=== PATIENT | male | born 1955 | race Caucasian/White ===

== ENCOUNTER 2018-12-17 16:21 | Emergency (ER) | payer MEDICARE, BC ==
[2018-12-17 16:40] VITALS: BP 148/66
--- NOTE | 2018-12-17 17:41 | EDM.PDOC ---
<GeorgeshayleeYolanda M - Last Filed: 12/17/18 17:45> ED HPI GENERAL MEDICAL PROBLEM - General Chief Complaint: Laceration Stated Complaint: LEFT INDEX FINGER CUT Time Seen by Provider: 12/17/18 17:30 History Limitations: Reports: No Limitations - History of Present Illness INITIAL COMMENTS - FREE TEXT/NARRATIVE: was cutting with a hacksaw when blade slipped cutting thumb and index finder of left hand. Onset: Today - Related Data Allergies Allergy/AdvReac Type Severity Reaction Status Date / Time No Known Allergies Allergy Verified 12/17/18 16:40 Past Medical History HEENT History: Reports: Hard of Hearing, Impaired Vision Respiratory History: Reports: Bronchitis, Recurrent, COPD Genitourinary History: Reports: Renal Calculus - Past Surgical History HEENT Surgical History: Reports: LASIK GI Surgical History: Reports: Hernia Repair/Other Social & Family History - Tobacco Use Smoking Status *Q: Current Every Day Smoker Years of Tobacco use: 45 Packs/Tins Daily: 0.5 - Caffeine Use Caffeine Use: Reports: Coffee, Tea - Recreational Drug Use Recreational Drug Use: No ED EXAM, SKIN/RASH Exam: See Below Exam Limited By: No Limitations General Appearance: Alert, WD/WN, No Apparent Distress Ears: Hearing Grossly Normal Extremities: Other (left hand lacerations, superficial skin tear to left thumb, 2.0 cm laceration to MIP joint, radial aspect, well approximated incision.) Course - Vital Signs Last Recorded V/S: Last Vital Signs Temp 35.9 C 12/17/18 16:43 Pulse 65 12/17/18 16:43 Resp 16 12/17/18 16:43 BP 148/66 H 12/17/18 16:43 Pulse Ox 97 12/17/18 16:43 - Orders/Labs/Meds Orders: Active Orders 24 hr Category Date Time Status Vaccines to be Administered [RC] PER UNIT ROUTINE Care 12/17/18 17:44 Active Meds: Medications Discontinued Medications Generic Name Dose Route Start Last Admin Trade Name Freq PRN Reason Stop Dose Admin Bacitracin 1 dose 12/17/18 17:50 12/17/18 17:57 Bacitracin Oint 1 Gm TOP 12/17/18 17:51 1 dose ONETIME ONE Administration Diphtheria/Tetanus/Acell Pertussis 0.5 ml 12/17/18 17:44 12/17/18 17:56 Adacel IM 12/17/18 17:45 0.5 ml .ONCE ONE Administration Departure - Departure Disposition: Home, Self-Care 01 Clinical Impression: Finger laceration - Discharge Information *PRESCRIPTION DRUG MONITORING PROGRAM REVIEWED*: No *COPY OF PRESCRIPTION DRUG MONITORING REPORT IN PATIENT [place]: No Instructions: Laceration Care, Adult, [id number] Referrals: PCP,None [Primary Care Provider] - Forms: ED Department Discharge Additional Instructions: Keep wound clean and dry. Apply bacitracin once a day when change out bandaid. Watch for signs of infection, redness, drainage from wound, redline traveling down to wrist. Tetanus updated by RN. <Hamzah Vargas - Last Filed: 12/18/18 18:43> ED ROS GENERAL - Review of Systems Review Of Systems: ROS reveals no pertinent complaints other than HPI. ED EXAM, SKIN/RASH Skin: Other (There is a laceration to the radial side of the middle phalanx of the left index finger. It's approximately 2 cm long handed full-thickness and it appears to need suturing.) Course - Orders/Labs/Meds Orders: Active Orders 24 hr Category Date Time Status Vaccines to be Administered [RC] PER UNIT ROUTINE Care 12/17/18 17:44 Active Meds: Medications Discontinued Medications Generic Name Dose Route Start Last Admin Trade Name Fabián PRN Reason Stop Dose Admin Bacitracin 1 dose 12/17/18 17:50 12/17/18 17:57 Bacitracin Oint 1 Gm TOP 12/17/18 17:51 1 dose ONETIME ONE Administration Diphtheria/Tetanus/Acell Pertussis 0.5 ml 12/17/18 17:44 12/17/18 17:56 Adacel IM 12/17/18 17:45 0.5 ml .ONCE ONE Administration - Re-Assessments/Exams Free Text/Narrative Re-Assessment/Exam: 12/17/18 17:44I examined this patient along with the nurse practitioner student and he has a hacksaw laceration to the lateral or radial side of the left index finger. It is about 2 cm long its superficial except for one tiny place about 2 mm long were it is a little bit deeper. Edges are well approximated and it looks like a clean wound. Sutures would add nothing to the care of this wound. Wound was copiously lavaged and will receive some antibiotic ointment and a dressing no follow-up should be needed. Tetanus will be addressed Departure - Departure Time of Disposition: 18:43
--- NOTE | 2018-12-17 17:43 | EDM.PDOC ---
ED HPI GENERAL MEDICAL PROBLEM - General Chief Complaint: Laceration Stated Complaint: LEFT INDEX FINGER CUT Time Seen by Provider: 12/17/18 17:30 - Related Data Allergies Allergy/AdvReac Type Severity Reaction Status Date / Time No Known Allergies Allergy Verified 12/17/18 16:40 Past Medical History HEENT History: Reports: Hard of Hearing, Impaired Vision Respiratory History: Reports: Bronchitis, Recurrent, COPD Genitourinary History: Reports: Renal Calculus - Past Surgical History HEENT Surgical History: Reports: LASIK GI Surgical History: Reports: Hernia Repair/Other Social & Family History - Tobacco Use Smoking Status *Q: Current Every Day Smoker Years of Tobacco use: 45 Packs/Tins Daily: 0.5 - Caffeine Use Caffeine Use: Reports: Coffee, Tea - Recreational Drug Use Recreational Drug Use: No Course - Vital Signs Last Recorded V/S: Last Vital Signs Temp 35.9 C 12/17/18 16:43 Pulse 65 12/17/18 16:43 Resp 16 12/17/18 16:43 BP 148/66 H 12/17/18 16:43 Pulse Ox 97 12/17/18 16:43 - Re-Assessments/Exams Free Text/Narrative Re-Assessment/Exam: 12/17/18 17:41 I examined this patient along with the nurse practitioner student and he has a hacksaw laceration to the lateral or radial side of the left index finger. It is about 2 cm long its superficial except for one tiny place about 2 mm long were it is a little bit deeper. Edges are well approximated and it looks like a clean wound. Sutures would add nothing to the care of this wound. Wound was copiously lavaged and will receive some antibiotic ointment and a dressing no follow-up should be needed. Tetanus will be addressed Departure - Discharge Information Referrals: PCP,None [Primary Care Provider] - Forms: ED Department Discharge
[2018-12-17] MEDS ORDERED: Diphtheria,Pertussis(Acell),Tetanus Vaccine 0.5 ML SDV IM ONE (17:44)
[2018-12-17] MEDS ORDERED: Bacitracin Oint 1 GM U/D Packet TOP ONE (17:50)
== END 2018-12-17 18:03 | disposition home or self-care (01) ==
LOC: JP.ED 16:21
DX: S61.012A Laceration without foreign body of left thumb without damage to nail, initial encounter (principal); J44.9 Chronic obstructive pulmonary disease, unspecified; Z23 Encounter for immunization; F17.210 Nicotine dependence, cigarettes, uncomplicated; W27.8XXA Contact with other nonpowered hand tool, initial encounter
CPT/HCPCS: 90471; 90715; 99282